=== PATIENT | male | born 2000 | race African-American/Black ===

== ENCOUNTER 2022-11-04 22:41 | Emergency (ER) | payer BC | END 2022-11-05 00:42 | disposition left against medical advice (07) | LOC: MW.ED 22:41 | DX: Z53.21 Procedure and treatment not carried out due to patient leaving prior to being seen by health care provider (principal) ==

== ENCOUNTER 2022-11-05 10:41 | Emergency (ER) | payer BC ==
[2022-11-05] MEDS ORDERED: Diphtheria,Pertussis(Acell),Tetanus Vaccine 0.5 ML Syringe IM ONE (11:04)
[2022-11-05] MEDS ORDERED: traMADol 50 MG Tab PO ONE (12:40)
== END 2022-11-05 13:23 | disposition home or self-care (01) ==
LOC: MW.ED 10:41
DX: S01.81XA Laceration without foreign body of other part of head, initial encounter (principal); Z88.5 Allergy status to narcotic agent; Z23 Encounter for immunization; W01.198A Fall on same level from slipping, tripping and stumbling with subsequent striking against other object, initial encounter; Y93.51 Activity, roller skating (inline) and skateboarding
CPT/HCPCS: 70450; 90471; 90715; 99283; A9270